=== PATIENT | female | born 1995 | race Caucasian/White ===

== ENCOUNTER 2017-05-30 08:29 | Emergency (ER) | payer MEDICAID ==
[2012-07-28 10:35] VITALS: BMI 20.1
== END 2017-05-30 09:38 | disposition home or self-care (01) ==
LOC: D.ER 08:29
DX: J11.1 Influenza due to unidentified influenza virus with other respiratory manifestations (principal); E07.89 Other specified disorders of thyroid

== ENCOUNTER 2017-05-30 18:06 | Emergency (ER) | payer MEDICAID ==
[2012-07-28 10:35] VITALS: BMI 20.1
== END 2017-05-30 21:27 | disposition home or self-care (01) ==
LOC: D.ER 18:06
DX: M79.605 Pain in left leg (principal); M79.604 Pain in right leg; M54.5 Low back pain; M25.562 Pain in left knee

== ENCOUNTER 2017-07-17 14:15 | Emergency (ER) | payer MEDICAID ==
[2012-07-28 10:35] VITALS: BMI 20.1
== END 2017-07-17 16:54 | disposition home or self-care (01) ==
LOC: D.ER 14:15
DX: J11.1 Influenza due to unidentified influenza virus with other respiratory manifestations (principal)

== ENCOUNTER 2017-10-08 22:04 | Emergency (ER) | payer MEDICAID ==
[2012-07-28 10:35] VITALS: BMI 20.1
== END 2017-10-09 01:42 | disposition home or self-care (01) ==
LOC: D.ER 22:04
DX: S93.402A Sprain of unspecified ligament of left ankle, initial encounter (principal); X50.1XXA Overexertion from prolonged static or awkward postures, initial encounter; Y93.89 Activity, other specified; Y92.89 Other specified places as the place of occurrence of the external cause

== ENCOUNTER 2017-11-16 20:46 | Emergency (ER) | payer MEDICAID ==
[2012-07-28 10:35] VITALS: BMI 20.1
== END 2017-11-16 22:15 | disposition home or self-care (01) ==
LOC: D.ER 20:46
DX: L03.116 Cellulitis of left lower limb (principal); S70.362A Insect bite (nonvenomous), left thigh, initial encounter; W57.XXXA Bitten or stung by nonvenomous insect and other nonvenomous arthropods, initial encounter; Y93.89 Activity, other specified; Y92.019 Unspecified place in single-family (private) house as the place of occurrence of the external cause; E05.90 Thyrotoxicosis, unspecified without thyrotoxic crisis or storm